=== PATIENT | male | born 1995 | race Caucasian/White ===

== ENCOUNTER 2017-02-07 19:53 | Emergency (ER) | payer BC, OTHER ==
[~2017-02-07] VITALS: Ht 172.7 cm; Wt 59.1 kg
[2017-02-07] MEDS ORDERED: ALBU17IN2 INH (20:19)
[2017-02-07] MEDS ORDERED: ALBU83IN INH (20:19)
[2017-02-07] MEDS ORDERED: IPRATROPIUM 0.5MG/ALBUTEROL 2.5MG INH SOL UD 3ML (DUONEB)(J7620) NEB ONE ×3 (20:30)
[2017-02-07] MEDS ORDERED: methylPREDNISolone INJ 125 MG/2 ML VIAL (J2930) IM ONE (20:30)
[2017-02-07] MEDS ORDERED: IPRASOL4 INH (22:10)
[2017-02-07] MEDS ORDERED: PRED20TA PO (22:10)
[2017-02-07 22:17] VITALS: BP 137/71
--- NOTE | 2017-02-08 07:42 | REP ---
Clinical: Shortness of breath . Comparison: 10/02/2012 . Technique: PA and lateral. Findings: The mediastinum and cardiac silhouette are normal. The lung son are clear and without acute consolidation, effusion, or pneumothorax. The skeletal structures are intact and normal. Impression: 1. No acute cardiopulmonary process. Signed by Kenrick Rocha MD 02/08/2017 07:33 A
== END 2017-02-07 22:18 | disposition home or self-care (01) ==
LOC: M ED 19:53
DX: J45.901 Unspecified asthma with (acute) exacerbation (principal); Z91.030 Bee allergy status; Z88.8 Allergy status to other drugs, medicaments and biological substances
CPT/HCPCS: 71020; 94640; 96372; 99282; J2930

== ENCOUNTER 2018-06-17 08:31 | Emergency (ER) | payer BC, OTHER ==
[~2018-06-17] VITALS: Ht 172.7 cm; Wt 68.2 kg
[~2018-06-17 08:31] MED LIST: ALBU17IN2 INH; ALBU83IN INH; IPRA0.00 INH; PRED20TA PO
[2018-06-17] MEDS ORDERED: AMOX/K PO (08:37)
[2018-06-17] MEDS ORDERED: QVAR80AE8 INH (08:57)
[2018-06-17] MEDS ORDERED: PROAAER10 INH (08:57)
[2018-06-17 08:58] LABS: APPEARANCE, URINE CLEAR (CLEAR); BACTERIA, URINE AUTO NEGATIVE (NEGATIVE); BILIRUBIN, URINE AUTO NEGATIVE (NEGATIVE); BLOOD, URINE BLOOD NEGATIVE (NEGATIVE); COLOR, URINE STRAW (YELLOW); GLUCOSE, URINE (UA) AUTO NEGATIVE (NEGATIVE); KETONE, URINE AUTO NEGATIVE (NEGATIVE); LEUKOCYTE ESTERASE, URINE AUTO NEGATIVE (NEGATIVE); NITRITE, URINE AUTO NEGATIVE (NEGATIVE); PROTEIN, URINE AUTO NEGATIVE (NEGATIVE); RBC, URINE AUTO 4 /HPF (0-3); SPECIFIC GRAVITY URINE AUTO 1.011 (1.002-1.035); SQUAMOUS EPITHELIAL CELL UR AU 0 /HPF (0-6); UROBILINOGEN, URINE AUTO 0.2 mg/dL (0.0-2.0); WBC, URINE AUTO 0 /HPF (0-3)
[2018-06-17 10:18] LABS: CHLAMYDIA DNA AMPLIFICATION NEGATIVE (NEGATIVE); GC DNA AMPLIFICATION NEGATIVE (NEGATIVE)
--- NOTE | 2018-06-17 11:16 | REP ---
SCROTAL ULTRASOUND: 06/17/2018. Clinical history: Left testicle pain. Findings: No prior study. The right testis is 4.8 x 2.1 x 3 cm. This gives a calculated volume of 15.8 ml. The left testis is 4.1 x 2.1 x 2.7 cm. This gives calculated volume of 12.2 ml. Doppler tracing of both testes is normal with resistive index of 0.52 on the right and 0.59 on the left. No evidence of torsion or detorsion. Both testes are homogeneous in appearance without stone, cyst or mass. Symmetric blood flow to each testis. CC diameter of the epididymal head on the right is 8 mm. It overall measures 8 x 14 x 17 mm. There is no cyst or solid mass in the right epididymis. CC diameter of the epididymal head on the left is 9 ml. The overall measures 9 x 15 x 16 mm. There are two left epididymal head cysts measuring 5 x 5 mm and 3 x 2 mm. A small left hydrocele is noted. The epididymal appendix is seen measuring 7 x 4 x 3 mm. No varicocele. No right hydrocele. Impression: 1. Two epididymal head cysts on the left at 5 and 3 mm size with normal epididymal head size overall. 2. Fairly symmetric normal testicular size with normal blood flow and Doppler tracing. No evidence of torsion or detorsion. Homogeneous echotexture throughout. 3. Small left hydrocele. No right hydrocele or varicocele on either side. Epididymal appendage noted on the left 7 x 4 x 3 mm. This is normal. Electronically Signed by Jim Smith MD 06/17/2018 02:26 P
[2018-06-17] MEDS ORDERED: NAPR-50 PO (11:25)
[2018-06-17] MEDS ORDERED: KETOROLAC 60 MG/2 ML VIAL (J1885) IM ONE (11:30)
[2018-06-17 11:54] VITALS: BP 141/64
== END 2018-06-17 11:57 | disposition home or self-care (01) ==
LOC: M ED 08:31
DX: N43.3 Hydrocele, unspecified (principal); N50.3 Cyst of epididymis; J45.909 Unspecified asthma, uncomplicated; Z88.1 Allergy status to other antibiotic agents; Z91.030 Bee allergy status; F17.210 Nicotine dependence, cigarettes, uncomplicated
CPT/HCPCS: 76870; 81001; 87491; 87591; 93976; 96372; 99283; J1885

== ENCOUNTER → 2018-06-18 | Outpatient (REF) | payer OTHER ==
[~2018-06-18] MED LIST changes: +AMOX/K PO; +NAPR-50 PO; +PROAAER10 INH; +QVAR80AE8 INH
== END ==
LOC: M LAB REF 10:29
PROVIDERS: ATTEND Physician Assistant
DX: J03.90 Acute tonsillitis, unspecified (principal)

== ENCOUNTER → 2018-07-02 | Outpatient (REF) | payer OTHER ==
[2018-07-02 20:32] LABS: APPEARANCE, URINE CLEAR (CLEAR); BACTERIA, URINE AUTO NEGATIVE (NEGATIVE); BILIRUBIN, URINE AUTO NEGATIVE (NEGATIVE); BLOOD, URINE BLOOD NEGATIVE (NEGATIVE); COLOR, URINE YELLOW (YELLOW); GLUCOSE, URINE (UA) AUTO NEGATIVE (NEGATIVE); KETONE, URINE AUTO NEGATIVE (NEGATIVE); LEUKOCYTE ESTERASE, URINE AUTO NEGATIVE (NEGATIVE); MUCUS, URINE SMALL (NEGATIVE); NITRITE, URINE AUTO NEGATIVE (NEGATIVE); PROTEIN, URINE AUTO NEGATIVE (NEGATIVE); RBC, URINE AUTO 0 /HPF (0-3); SPECIFIC GRAVITY URINE AUTO 1.014 (1.002-1.035); SQUAMOUS EPITHELIAL CELL UR AU 0 /HPF (0-6); UROBILINOGEN, URINE AUTO 0.2 mg/dL (0.0-2.0); WBC, URINE AUTO 1 /HPF (0-3)
== END ==
LOC: M SMT 14:57
PROVIDERS: ATTEND Nurse Practitioner Family
DX: R31.29 Other microscopic hematuria (principal)

== ENCOUNTER → 2018-07-06 | Outpatient (CLI) | payer BC, OTHER ==
[~2018-07-06] MED LIST changes: +ISOVUE-370 76% 100ML VIAL (Q9967) As Ordered ONE
--- NOTE | 2018-07-06 15:08 | REP ---
CT ABDOMEN PELVIS WITHOUT AND WITH CONTRAST: 07/06/2018 COMPARISON: Scrotal ultrasound 06/17/2018. CLINICAL HISTORY: Testicular pain, microhematuria. TECHNIQUE: Noncontrast scanning through the abdomen pelvis with subsequent bolus 100 mL Isovue 370 scanning through the abdomen pelvis with equilibrium and delayed phase imaging (10 minutes). Coronal and sagittal reconstructions with 3D CT urogram reconstruction on the 10-minute delayed views. FINDINGS: CT ABDOMEN: Lung bases clear. Heart not enlarged. No pericardial thickening or effusion. No definite hiatal hernia. Liver, spleen, gallbladder, pancreas, adrenal glands, stomach, abdominal portion of small bowel loops and the visualized colon in the abdomen proper are all unremarkable. There is no ventral hernia. The aorta is without aneurysm or dissection. No periaortic, retroperitoneal or pathologic sized lymphadenopathy. Noncontrast images show no nephrolithiasis. The collecting systems are without dilatation or filling defect. No hydronephrosis is present on either side. The proximal half of the right ureter is mildly prominent with the left ureter unremarkable. There is a right ureteral caliber change or stricture as the right ureter crosses the right iliac vessels. No visible filling defect. The distal right ureter shows smaller caliber. No stones on the precontrast images. No mass. Bone windows show the lower thoracic through lumbar spine with no compression deformity, destructive lesion. Visualized ribs are intact. CT PELVIS: Sacrum, SI joints, pelvis, hips and ischia are all intact. Prostate not grossly enlarged. Seminal vesicles symmetric. Bladder only partially filled. There is no mass or wall thickening. No distal ureteral stone or bladder stone evident on this study. The caliber of the distal right ureter is smaller than left due to the stricture at the level of the iliac crossing of that right ureter. Small bowel loops unremarkable with the distal left colon, sigmoid and rectum are unremarkable. There is no abdominal or pelvic ascites, perforation or free air. IMPRESSION: 1. No renal, ureteral or bladder stone. 2. There is no hydronephrosis but mild prominence of the right ureter with a smaller caliber of that ureter after crosses the iliac vessels. No filling defects or stones in the distal right ureter left ureter and collecting system normal. Bladder unremarkable. 3. Solid organs in the upper abdomen along the gallbladder, stomach, small bowel loops and colon are unremarkable. 4. No ventral or inguinal hernia nor evidence for inguinal adenopathy. Electronically Signed by Jim Smith MD 07/06/2018 05:52 P
== END ==
LOC: M RAD 13:37
PROVIDERS: ATTEND Nurse Practitioner Family
DX: R31.29 Other microscopic hematuria (principal)
CPT/HCPCS: 74178; Q9967

== ENCOUNTER 2018-09-12 22:25 | Emergency (ER) | payer BC, OTHER ==
[~2018-09-12] VITALS: Ht 172.7 cm; Wt 64.7 kg
[2018-09-12 22:25] VITALS: BP 131/61
[~2018-09-12 22:25] MED LIST changes: -ISOVUE-370 76% 100ML VIAL (Q9967) As Ordered ONE; -NAPR-50 PO; +NAPR-837 PO
[2018-09-12] MEDS ORDERED: AZITHROMYCIN 250 MG TAB PO ONE (23:30)
[2018-09-13 01:03] LABS: CHLAMYDIA DNA AMPLIFICATION NEGATIVE (NEGATIVE); GC DNA AMPLIFICATION NEGATIVE (NEGATIVE)
== END 2018-09-12 23:55 | disposition home or self-care (01) ==
LOC: M ED 22:25
DX: Z20.2 Contact with and (suspected) exposure to infections with a predominantly sexual mode of transmission (principal); Z86.19 Personal history of other infectious and parasitic diseases; Z72.0 Tobacco use; Z79.899 Other long term (current) drug therapy; Z88.8 Allergy status to other drugs, medicaments and biological substances; Z91.030 Bee allergy status

== ENCOUNTER 2018-09-24 02:14 | Emergency (ER) | payer BC, OTHER ==
[~2018-09-24] VITALS: Ht 172.7 cm; Wt 63.6 kg
[2018-09-24 02:15] VITALS: BP 158/65
[2018-09-24] MEDS ORDERED: DOXY100C37 PO (02:33)
[2018-09-24] MEDS ORDERED: diphenhydrAMINE INJ 50MG/ML VIAL (J1200) IM ONE (02:45)
[2018-09-24] MEDS ORDERED: LIDOCAINE 1% SDV 5 ML VIAL DILUENT ONE (02:45)
[2018-09-24] MEDS ORDERED: cefTRIAXone SOD 500 MG VIAL (J0696) IM ONE (02:45)
== END 2018-09-24 03:18 | disposition home or self-care (01) ==
LOC: M ED 02:14
DX: Z20.2 Contact with and (suspected) exposure to infections with a predominantly sexual mode of transmission (principal); J45.909 Unspecified asthma, uncomplicated; F17.210 Nicotine dependence, cigarettes, uncomplicated; Z91.030 Bee allergy status; Z88.1 Allergy status to other antibiotic agents; Z79.51 Long term (current) use of inhaled steroids
CPT/HCPCS: 96372; 99284; J0696; J1200

== ENCOUNTER 2018-09-30 17:25 | Emergency (ER) | payer BC, OTHER ==
[~2018-09-30] VITALS: Ht 172.7 cm; Wt 65.1 kg
[~2018-09-30 17:25] MED LIST changes: +DOXY100C37 PO
--- NOTE | 2018-09-30 19:10 | REPVR ---
EXAM: US Scrotum EXAM DATE/TIME: 09/30/2018 6:55 PM CLINICAL HISTORY: 23 years old, male; Scrotum pain; Additional info: Testicular pain, ? hernia vs torsion TECHNIQUE: Imaging protocol: Real-time ultrasound of the scrotum and contents with color Doppler and image documentation. COMPARISON: Scrotal, US 06/17/2018 9:28 AM FINDINGS: Right testicle measures 3.5 x 4.6 x 1.7 cm in size. Right testicle appears homogeneous with no focal mass. Normal Doppler flow is present within the right testicle. Left testicle measures 2.6 x 4.1 x 2.2 cm in size. Left testicle appears homogeneous with no focal mass. Normal Doppler flow is present within the left testicle. Right and left epididymis are symmetric and have normal Doppler flow. Small left epididymal cyst measuring 4 mm, incidental. Minimal 1 mm right epididymal cyst Minimal left hydrocele and small bilateral varicocele. No bowel-containing hernia sac within the scrotum. IMPRESSION: No intratesticular pathology or evidence of torsion. Minimal bilateral varicoceles and benign incidental small epididymal cysts Electronically signed by: Giovani Aly On 09/30/2018 19:10:12 PM
--- NOTE | 2018-09-30 19:11 | REPVR ---
EXAM: US Pelvis Limited, Male EXAM DATE/TIME: 09/30/2018 6:55 PM CLINICAL HISTORY: 23 years old, male; Pain; Other: RT groin to testicle tenderness; Additional info: Testicular pain, ? hernia vs torsion TECHNIQUE: Imaging protocol: Real-time pelvic ultrasound with image documentation. COMPARISON: CT ABD PELVIS W/O FOL BY WIT 07/06/2018 1:53 PM FINDINGS: Real-time imaging of the inguinal canals demonstrates no evidence of abdominal wall defect and no prolapse of bowel into the inguinal canal to indicate hernia. No fluid collection IMPRESSION: No evidence of inguinal hernia on either side. Electronically signed by: Giovani Aly On 09/30/2018 19:10:59 PM
[2018-09-30 20:32] LABS: CHLAMYDIA DNA AMPLIFICATION NEGATIVE (NEGATIVE); GC DNA AMPLIFICATION NEGATIVE (NEGATIVE)
[2018-09-30 20:47] VITALS: BP 130/65
== END 2018-09-30 20:55 | disposition home or self-care (01) ==
LOC: M ED 17:25
DX: N50.811 Right testicular pain (principal); N50.3 Cyst of epididymis; N43.3 Hydrocele, unspecified; I86.1 Scrotal varices; J45.909 Unspecified asthma, uncomplicated; Z88.1 Allergy status to other antibiotic agents; F17.210 Nicotine dependence, cigarettes, uncomplicated

== ENCOUNTER → 2018-10-17 | Outpatient (CLI) | payer BC, OTHER ==
--- NOTE | 2018-10-17 17:03 | REP ---
Clinical: Ureteral stricture Technique: Real time kaba scale ultrasound examination using curved array transducer. Findings: Bilateral kidneys are normal in contour, size, echogenicity, and reniform shape. No hydronephrosis, nephrolithiasis, cystic or renal mass lesion. No perinephric fluid collection. No obvious findings to suggest ureteral stricture by ultrasound examination. Right kidney measures 10.5 x 5.9 x 4.1 cm. Left kidney measures 10.4 x 5.3 x 5.3 cm. Bladder is normal in appearance without wall thickening or mass lesion. Prevoid bladder measures 8.0 x 8.0 x 5.7 cm (238 ml). Postvoid bladder measures 2.7 x 2.7 x 1.2 cm (6 ml). Postvoid residual equals 2%. Impression: Normal renal/bladder ultrasound. Electronically Signed by Kenrick Rocha MD 10/17/2018 04:55 P
== END ==
LOC: M RAD 13:58
PROVIDERS: ATTEND Nurse Practitioner Family
DX: N13.5 Crossing vessel and stricture of ureter without hydronephrosis (principal)

== ENCOUNTER → 2018-10-19 | Outpatient (REF) | payer OTHER ==
[2018-10-19 18:21] LABS: APPEARANCE, URINE CLEAR (CLEAR); BACTERIA, URINE AUTO NEGATIVE (NEGATIVE); BILIRUBIN, URINE AUTO NEGATIVE (NEGATIVE); BLOOD, URINE BLOOD NEGATIVE (NEGATIVE); COLOR, URINE YELLOW (YELLOW); GLUCOSE, URINE (UA) AUTO NEGATIVE (NEGATIVE); KETONE, URINE AUTO NEGATIVE (NEGATIVE); LEUKOCYTE ESTERASE, URINE AUTO NEGATIVE (NEGATIVE); MUCUS, URINE SMALL (NEGATIVE); NITRITE, URINE AUTO NEGATIVE (NEGATIVE); PROTEIN, URINE AUTO NEGATIVE (NEGATIVE); RBC, URINE AUTO 0 /HPF (0-3); SPECIFIC GRAVITY URINE AUTO 1.018 (1.002-1.035); SQUAMOUS EPITHELIAL CELL UR AU 0 /HPF (0-6); UROBILINOGEN, URINE AUTO 0.2 mg/dL (0.0-2.0); WBC, URINE AUTO 1 /HPF (0-3)
== END ==
LOC: M SMT 17:02
PROVIDERS: ATTEND Nurse Practitioner Family
DX: R31.29 Other microscopic hematuria (principal)

== ENCOUNTER 2018-11-29 00:22 | Emergency (ER) | payer BC, OTHER ==
[~2018-11-29] VITALS: Ht 172.7 cm; Wt 65.9 kg
[2018-11-29 00:25] VITALS: BP 134/68
[2018-11-29 02:53] LABS: CHLAMYDIA DNA AMPLIFICATION NEGATIVE (NEGATIVE); GC DNA AMPLIFICATION NEGATIVE (NEGATIVE)
[2018-11-30] MEDS ORDERED: ALBU8.5H (13:57)
== END 2018-11-29 04:33 | disposition left against medical advice (07) ==
LOC: M ED 00:22
DX: N50.819 Testicular pain, unspecified (principal); Z53.21 Procedure and treatment not carried out due to patient leaving prior to being seen by health care provider

== ENCOUNTER 2018-11-30 13:01 | Emergency (ER) | payer BC, OTHER ==
[~2018-11-30] VITALS: Ht 172.7 cm; Wt 64.3 kg
[2018-11-30] MEDS ORDERED: ALBU8.5H (13:57)
[2018-11-30 15:17] LABS: CHLAMYDIA DNA AMPLIFICATION NEGATIVE (NEGATIVE); GC DNA AMPLIFICATION NEGATIVE (NEGATIVE)
[2018-11-30 16:14] VITALS: BP 119/55
[2018-12-03 12:39] LABS: HEPATITIS B SURFACE ANTIBODY NEGATIVE (POSITIVE); HEPATITIS B SURFACE ANTIGEN NEGATIVE (NEGATIVE); HEPATITIS C VIRUS ABY INDEX 0.1 INDEX (<0.8); HIV 1&2 SCREEN CENTAUR NEGATIVE (NEGATIVE)
== END 2018-11-30 16:26 | disposition home or self-care (01) ==
LOC: M ED 13:01
DX: Z11.3 Encounter for screening for infections with a predominantly sexual mode of transmission (principal); Z86.19 Personal history of other infectious and parasitic diseases; Z88.1 Allergy status to other antibiotic agents; Z79.51 Long term (current) use of inhaled steroids; Z91.030 Bee allergy status

== ENCOUNTER 2018-12-15 15:40 | Emergency (ER) | payer BC, OTHER ==
[~2018-12-15] VITALS: Ht 172.7 cm; Wt 63.5 kg
[~2018-12-15 15:40] MED LIST changes: +ALBU8.5H
--- NOTE | 2018-12-15 17:52 | REPVR ---
EXAM: US Scrotum EXAM DATE/TIME: 12/15/2018 4:26 PM CLINICAL HISTORY: 23 years old, male; Scrotum pain; Additional info: Right testicular pain, patient states he woke up and saw that it was malpositioned and forcibly readjusted RT testicle, currently presents with RT scrotal pain/tenderness TECHNIQUE: Imaging protocol: Real-time ultrasound of the scrotum and contents with color Doppler and image documentation. COMPARISON: Scrotal, US 09/30/2018 6:43 PM FINDINGS: Right testicle measures 4.5 CM in length by 2.5 CM in thickness. The left testicle measures 4.3 CM in length by 2.5 CM in thickness. There is uniform echogenicity of both the right and left testicle. There is vascular flow of both the right and left testicle. It appears that the epididymal head of the right testicle is located along the inferior margin which may be indicative of abnormal rotation. It is possible that the right testicle is abnormally rotated without interruption of the blood supply at the present time. Clinical correlation would be important. There is a small varicocele of the left testicle and also a mild left hydrocele. There is a small cyst at the epididymal head right and left. The previous ultrasound was reviewed from 10/01/2018. On the previous examination the epididymal head was in a superior location suggesting that the testicle is now rotated on its long axis allowing the epididymal head to reside inferior. IMPRESSION: 1. There is vascular flow of the right and left testicle demonstrated at this time. 2. However, the right epididymal head is located inferior and the right testicle may be abnormally rotated without compromising the blood supply at this time. Clinical correlation would be important. Rotation of the right testicle on the long axis, see above. Electronically signed by: Abraham Richardson On 12/15/2018 17:52:32 PM
[2018-12-15 18:51] VITALS: BP 139/67
--- NOTE | 2018-12-15 20:17 | ED PDOC ---
Post-Departure Follow-Up dr dimas faxed formal report of scrotal us for Sis Howe MD Dec 15, 2018 20:17
[2018-12-15 20:30] LABS: CHLAMYDIA DNA AMPLIFICATION NEGATIVE (NEGATIVE); GC DNA AMPLIFICATION NEGATIVE (NEGATIVE)
== END 2018-12-15 19:04 | disposition home or self-care (01) ==
LOC: M ED 15:40
DX: N50.811 Right testicular pain (principal); J45.909 Unspecified asthma, uncomplicated; Z72.0 Tobacco use; Z79.899 Other long term (current) drug therapy; Z88.8 Allergy status to other drugs, medicaments and biological substances; Z91.030 Bee allergy status

== ENCOUNTER → 2018-12-28 | Outpatient (CLI) | payer BC, OTHER ==
[2018-12-28 17:59] LABS: BLOOD UREA NITROGEN 10 MG/DL (7-18); CALCIUM LEVEL 9.2 MG/DL (8.5-10.1); CARBON DIOXIDE LEVEL 26 MEQ/L (21-32); CHLORIDE LEVEL 107 MEQ/L (98-107); CREATININE FOR GFR 0.98 MG/DL (0.70-1.30); GLOMERULAR FILTRATION RATE > 60.0 (>60); GLUCOSE, FASTING 82 MG/DL (70-100); SODIUM LEVEL 142 MEQ/L (136-145)
[2018-12-28 18:00] LABS: HEMATOCRIT 45.7 % (42.0-52.0); HEMOGLOBIN 15.8 g/dl (13.5-17.5); MEAN CORPUSCULAR HEMOGLOBIN 31.6 pg (27.0-33.0); MEAN CORPUSCULAR HGB CONC 34.6 g/dl (32.0-36.5); MEAN CORPUSCULAR VOLUME 91.4 fl (80.0-96.0); PLATELET COUNT, AUTOMATED 204 10^3/uL (150-450); WHITE BLOOD COUNT 6.4 10^3/uL (4.0-10.0)
[2018-12-28 18:12] LABS: INR 1.17; PROTHROMBIN TIME 14.6 SECONDS (11.8-14.0)
[2018-12-28 18:13] LABS: PARTIAL THROMBOPLASTIN TIME 34.3 SECONDS (25.0-38.4)
== END ==
LOC: M SMT 13:40
PROVIDERS: ATTEND Nurse Practitioner Family
DX: Z01.818 Encounter for other preprocedural examination (principal); N44.00 Torsion of testis, unspecified

== ENCOUNTER 2019-01-21 08:06 | Day surgery (SDC) | payer BC, OTHER ==
[~2019-01-21] VITALS: Ht 172.7 cm; Wt 62.6 kg
[~2019-01-21 08:06] MED LIST changes: +BUPIVACAINE HCL 0.25% 30 ML VIAL As Ordered ONE; +CIPROFLOXACIN 400 MG in APPROPRIATE DILUENT 1 EA IV ONE; +LIDOCAINE 2% INJ 100 MG/5 ML SDV (FOR ANES.) As Ordered ONE; +LR 1,000 ML IV ONE; +MIDAZOLAM INJ 2 MG/2 ML VIAL (J2250) As Ordered ONE; +ONDANSETRON 4MG/2ML VIAL (J2405) As Ordered ONE; +PROPOFOL 200 MG/20 ML VIAL As Ordered ONE; +dexameTHASONE 4 MG/ML 1ML VIAL (J1100) As Ordered ONE; +fentaNYL 250 MCG/5 ML INJECTION (J3010) As Ordered ONE
[2019-01-21] MEDS ORDERED: diphenhydrAMINE INJ 50MG/ML VIAL (J1200) As Ordered ONE (09:56)
[2019-01-21] MEDS ORDERED: ACETAMINOPHEN 1000MG 100ML IV BTL (OFIRMEV) (J0131 PER 10MG) As Ordered ONE (10:16)
[2019-01-21] MEDS ORDERED: KETOROLAC 60 MG/2 ML VIAL (J1885) As Ordered ONE (10:16)
[2019-01-21] MEDS ORDERED: NORCO, ANEXSIA 5/325MG TABLET (HYDROcodone/ACETAMINOPHEN) PO PRN (11:00)
[2019-01-21] MEDS ORDERED: NORC1TAB7 PO (11:01)
[2019-01-21] MEDS ORDERED: oxyCODONE 5MG TAB As Ordered ONE (11:02)
[2019-01-21] MEDS: fentaNYL 100 MCG/2 ML INJECTION (J3010) IV PRN ×4 (11:10→11:25)
[2019-01-21] MEDS ORDERED: oxyCODONE 5MG TAB PO PRN (11:15)
[2019-01-21] MEDS ORDERED: ONDANSETRON 4MG/2ML VIAL (J2405) IV PRN (11:15)
[2019-01-21] MEDS ORDERED: LR 1,000 ML IV SCH (11:15)
[2019-01-21] MEDS ORDERED: NORCO, ANEXSIA 5/325MG TABLET (HYDROcodone/ACETAMINOPHEN) PO ONE (11:30)
[2019-01-21 13:20] VITALS: BP 124/66
--- NOTE | 2019-01-25 22:04 | RO ---
DATE OF PROCEDURE: 01/21/2019 PREPROCEDURE DIAGNOSIS: Intermittent testicular torsion. POSTPROCEDURE DIAGNOSIS: Intermittent testicular torsion. PROCEDURE: Bilateral scrotal orchiopexy. SURGEON: Berto Mendez MD SE[employer] ENGINE [employer]IMIZATION STRATEGIST: ANESTHESIA: General. INDICATION: This 23-year-old presented with acute onset right-sided testicular pain. He actually had resolution of pain prior to getting his ultrasound in the emergency room. He did have a transverse lie of his testicle on exam. Ultrasound did show adequate flow to the testes. There were no testes masses. Of note, his brother had an episode of testicular torsion earlier this year requiring emergent orchiopexy. The patient is a twin. Our impression was that he was having intermittent torsion and preemptive orchiopexy was advised. DESCRIPTION OF PROCEDURE: After obtaining informed consent from the patient, he was taken to the operating room, after sufficient anesthetic, he was prepped and draped in the usual manner. A transverse scrotal incision was made. We sequentially opened the layers of the scrotum, including the tunica vaginalis. The testes were extracted on each side and inspected. No mass lesions were noted. Appendix epididymidis were taken off. Orchiopexy was performed using interrupted #3-0 Prolene suture, fixing the testes laterally, medially and inferiorly. After checking for hemostasis and irrigating the wound, closure was affected with running #4-0 chromic on the dartos fascia and horizontal mattress #4-0 chromic on the skin. Sterile dressings were applied including an athletic supporter, and the patient transferred to the recovery room in satisfactory condition. An ice pack was promptly placed. DISPOSITION: He is dismissed home to followup in 2 weeks. Diet as tolerated. Activity light. Dressing may be removed on postoperative day #1, and he may shower and leave the wound uncovered thereafter. He may resume full activity when pain free.
== END 2019-01-21 13:44 | disposition home or self-care (01) ==
LOC: M SDC 08:06
PROVIDERS: ATTEND Urology
DX: N44.00 Torsion of testis, unspecified (principal); J45.909 Unspecified asthma, uncomplicated; Z72.0 Tobacco use; Z88.1 Allergy status to other antibiotic agents; Z91.030 Bee allergy status
CPT/HCPCS: 54640; J0131; J0744; J1100; J1200; J1885; J2250; J2405; J3010

== ENCOUNTER → 2019-05-03 | Outpatient (REF) | payer OTHER ==
[~2019-05-03] MED LIST changes: -BUPIVACAINE HCL 0.25% 30 ML VIAL As Ordered ONE; -CIPROFLOXACIN 400 MG in APPROPRIATE DILUENT 1 EA IV ONE; -LIDOCAINE 2% INJ 100 MG/5 ML SDV (FOR ANES.) As Ordered ONE; -LR 1,000 ML IV ONE; -MIDAZOLAM INJ 2 MG/2 ML VIAL (J2250) As Ordered ONE; +NORC1TAB7 PO; -ONDANSETRON 4MG/2ML VIAL (J2405) As Ordered ONE; -PROPOFOL 200 MG/20 ML VIAL As Ordered ONE; -dexameTHASONE 4 MG/ML 1ML VIAL (J1100) As Ordered ONE; -fentaNYL 250 MCG/5 ML INJECTION (J3010) As Ordered ONE
[2019-05-03 23:01] LABS: CHLAMYDIA DNA AMPLIFICATION NEGATIVE (NEGATIVE); GC DNA AMPLIFICATION NEGATIVE (NEGATIVE)
== END ==
LOC: M LAB REF 14:02
PROVIDERS: ATTEND Physician Assistant
DX: R30.0 Dysuria (principal)

== ENCOUNTER → 2020-03-12 | Outpatient (CLI) | payer BC, OTHER ==
--- NOTE | 2020-03-12 17:37 | REP ---
INDICATION: SOB COMPARISON: 02/07/2017 TECHNIQUE: PA and lateral. FINDINGS: The mediastinum and cardiac silhouette are normal. The lung son are clear and without acute consolidation, effusion, or pneumothorax. The skeletal structures are intact and normal. IMPRESSION: No acute cardiopulmonary process <Electronically signed by Kenrick Rocha > 03/12/20 [id number]
== END ==
LOC: M WUC 16:50
PROVIDERS: ATTEND Physician Assistant
DX: R06.02 Shortness of breath (principal)

== ENCOUNTER → 2022-12-21 | Outpatient (CLI) | payer BC ==
[~2022-12-21] MED LIST changes: +ALBU2.5V10 INH; -ALBU83IN INH; +DOXY-443 PO; -DOXY100C37 PO
== END ==
LOC: M RAD 13:07
PROVIDERS: ATTEND Internal Medicine
DX: N50.812 Left testicular pain (principal); N50.3 Cyst of epididymis

== ENCOUNTER 2024-06-11 01:53 | Emergency (ER) | payer BC ==
[~2024-06-11] VITALS: Ht 172.7 cm; Wt 85.6 kg
[~2024-06-11 01:53] MED LIST changes: -ALBU8.5H; +ALBU8.5H INH; +DOXY-441 PO; -DOXY-443 PO
[2024-06-11] MEDS: METOCLOPRAMIDE INJ 10MG/2ML VIAL IV ONE (03:49)
[2024-06-11] MEDS: PANTOPRAZOLE 40MG VIAL IV ONE (03:49)
[2024-06-11] MEDS: NS (Normal Saline) 0.9% 1,000 ML IV SCH (03:49)
[2024-06-11] MEDS: LORazepam 2 MG/ML 1ML VIAL IV STA (04:07)
[2024-06-11 04:20] LABS: LIPASE 23 U/L (12-53)
[2024-06-11 04:21] LABS: ETHYL ALCOHOL (ETHANOL) < 0.003 % (0.000-0.010)
[2024-06-11 04:22] LABS: ALBUMIN 4.2 G/DL (3.2-5.2); ALKALINE PHOSPHATASE 82 U/L (40-129); ALT/SGPT 25 U/L (7.0-40); AST/SGOT 16 U/L (<34); BILIRUBIN,DIRECT 0.2 MG/DL (<0.4); BILIRUBIN,TOTAL 0.8 MG/DL (0.3-1.2); BLOOD UREA NITROGEN 13 MG/DL (9-23); CARBON DIOXIDE LEVEL 25 MMOL/L (20-31); CHLORIDE LEVEL 106 MMOL/L (98-107); CREATININE FOR GFR 0.73 MG/DL (0.70-1.30); GLOMERULAR FILTRATION RATE > 60.0 (>60); GLUCOSE, FASTING 103 MG/DL (60-100); POTASSIUM SERUM 3.4 MMOL/L (3.5-5.1); SODIUM LEVEL 140 MMOL/L (136-145); TOTAL PROTEIN 7.4 G/DL (5.7-8.2)
[2024-06-11 04:23] LABS: INR 0.99; PARTIAL THROMBOPLASTIN TIME 27.2 SECONDS (24.8-34.2); PROTHROMBIN TIME 13.4 SECONDS (12.5-14.5)
[2024-06-11 04:55] LABS: HEMATOCRIT 47.8 % (42.0-52.0); HEMOGLOBIN 16.9 g/dl (13.5-17.5); MEAN CORPUSCULAR HEMOGLOBIN 31.6 pg (27.0-33.0); MEAN CORPUSCULAR HGB CONC 35.4 g/dl (32.0-36.5); MEAN CORPUSCULAR VOLUME 89.5 fl (80.0-96.0); PLATELET COUNT, AUTOMATED 149 10^3/uL (150-450); RED BLOOD COUNT 5.34 10^6/uL (4.30-6.10); WHITE BLOOD COUNT 12.5 10^3/uL (4.0-10.0)
[2024-06-11] MEDS ORDERED: VENL75CA47 PO (06:06)
[2024-06-11] MEDS ORDERED: ONDA-282 PO (06:09)
[2024-06-11] MEDS ORDERED: PANT20TA6 PO (06:09)
[2024-06-11] MEDS ORDERED: HOME MED LIST COMPLETE! XX SCH (06:10)
[2024-06-11 06:35] VITALS: BP 121/65; TEMP 98.2; O2SAT 97
== END 2024-06-11 06:39 | disposition home or self-care (01) ==
LOC: M ED 01:53
DX: A08.11 Acute gastroenteropathy due to Norwalk agent (principal); J45.909 Unspecified asthma, uncomplicated; Z79.52 Long term (current) use of systemic steroids; Z79.83 Long term (current) use of bisphosphonates; Z79.899 Other long term (current) drug therapy; Z88.1 Allergy status to other antibiotic agents; Z91.030 Bee allergy status
CPT/HCPCS: 71045; 80053; 82077; 82248; 83690; 85027; 85610; 85730; 86850; 86900; 86901; 87486; 87507; 87581; 87633; 87798; 96361; 96374; 99284; J2060; J2470; J2765

== ENCOUNTER → 2025-01-20 | Outpatient (CLI) | payer BC ==
[~2025-01-20] MED LIST changes: +ONDA-282 PO; +PANT20TA6 PO; +VENL75CA47 PO
[2025-01-20 18:57] LABS: ALT/SGPT 32 U/L (7.0-40); AST/SGOT 20 U/L (<34); CALCIUM LEVEL 9.6 MG/DL (8.5-10.1); CARBON DIOXIDE LEVEL 25 MMOL/L (20-31); CHLORIDE LEVEL 108 MMOL/L (98-107); CREATININE FOR GFR 0.83 MG/DL (0.70-1.30); GLOMERULAR FILTRATION RATE > 90.0 (>60); POTASSIUM SERUM 3.9 MMOL/L (3.5-5.1); SODIUM LEVEL 143 MMOL/L (136-145)
[2025-01-20 19:07] LABS: BASO # 0.1 10^3/uL (0.0-0.2); BASO % 0.6 % (0.0-1.0); EOS # 0.5 10^3/uL (0.0-0.5); EOS % 5.6 % (0.0-3.0); LYMPH # 2.8 10^3/uL (1.5-5.0); LYMPH % 33.5 % (24.0-44.0); MONO # 0.7 10^3/uL (0.0-0.8); MONO % 8.3 % (2.0-8.0); NEUTROPHILS # 4.3 10^3/uL (1.5-8.5); NEUTROPHILS % 51.6 % (36.0-66.0); PLATELET COUNT, AUTOMATED 258 10^3/uL (150-450)
== END ==
LOC: M WUC 15:29
PROVIDERS: ATTEND Internal Medicine
DX: E87.6 Hypokalemia (principal)